=== PATIENT | male | born 1935 | race Caucasian/White ===

== ENCOUNTER → 2016-12-20 | Day surgery (SDC) | payer MEDICARE, BC ==
[~2016-12-20] MED LIST: Brimonidine 0.2% Ophth Soln 5 ML Bottle EYELF SCH; Phenylephrine 2.5% Ophth Soln 2 ML Bot EYELF SCH
[2016-12-20 10:28] VITALS: BP 150/71
== END ==
LOC: JD.SDS 09:49
PROVIDERS: ATTEND Ophthalmology
DX: H26.492 Other secondary cataract, left eye (principal); H35.372 Puckering of macula, left eye; H16.223 Keratoconjunctivitis sicca, not specified as Sjogren's, bilateral; H16.103 Unspecified superficial keratitis, bilateral; Z98.42 Cataract extraction status, left eye; Z98.41 Cataract extraction status, right eye; Z96.1 Presence of intraocular lens; Z79.82 Long term (current) use of aspirin; Z79.899 Other long term (current) drug therapy; Z98.890 Other specified postprocedural states
CPT/HCPCS: 66821; A9270

== ENCOUNTER 2021-02-11 07:31 | Emergency (ER) | payer MEDICARE, OTHER ==
--- NOTE | 2021-02-11 08:21 | EDM.PDOC ---
ED HPI GENERAL MEDICAL PROBLEM - General Chief Complaint: Gastrointestinal Problem Stated Complaint: CONSTIPATION X 1 WEEK Time Seen by Provider: 02/11/21 08:08 Source of Information: Reports: Patient History Limitations: Reports: No Limitations - History of Present Illness INITIAL COMMENTS - FREE TEXT/NARRATIVE: 85-year-old male presents to the ED complaining primarily of constipation with no good bowel movement for a week. He did give himself an enema this morning and did have some relief of rectal pressure discomfort. He takes MiraLAX on an intermittent basis which is not helpful. Complains of bloats and increased pain left upper quadrant left lower quadrant of the abdomen. No blood noted in the stool. No blood with wiping. Stools are hard and painful to pass and take a lot of bearing down to get things to go. He has known to have BPH as well but states his urinary stream is fair with nocturia usually x1 or none. He is also complaining of diffuse low back pain and hip pain on the left side. Onset: Other (Chronic issues with constipation and worsening low back pain left hip pain) Duration: Chronic, Getting Worse Location: Reports: Abdomen (Chronic constipation with primarily rectal pressure and occasional lower abdominal cramping pain.), Back (Increased left low back pain rating into the left hip and groin. Mildly down the left posterior left leg.) Quality: Reports: Ache (Constant aching pain left low back and hip area) Severity: Moderate (it is made worse by walking) Improves with: Reports: Rest Worsens with: Reports: Movement (Walking makes it worse.) Context: Denies: Activity, Exercise, Lifting, Sick Contact, Trauma, Other Associated Symptoms: Reports: Cough (Rare cough), Malaise. Denies: No Other Symptoms, Confusion ( usually no sputum.), Chest Pain, cough w sputum, Diaphoresis, Fever/Chills, Headaches, Loss of Appetite, Nausea/Vomiting, Rash, Seizure, Shortness of Breath, Syncope Treatments TUB WASHER: Reports: Other (see below) (Uses tramadol as needed for pain) Left Abdominal Pain Score (Numeric/FACES): 7 - Related Data Allergies Allergy/AdvReac Type Severity Reaction Status Date / Time No Known Allergies Allergy Verified 02/11/21 08:03 Home Meds: Home Meds Ascorbate Calcium [Vitamin C] 500 mg PO DAILY 06/06/18 [History] Calcium Carbonate [Calcium] 500 mg PO DAILY 06/06/18 [History] Docusate Sodium [Stool Softener] 100 mg PO DAILY 06/06/18 [History] Vitamin A Palmitate [Vitamin A] 1 tab PO DAILY 06/06/18 [History] traMADol [Ultram] 50 mg PO Q4HR PRN 06/06/18 [History] Meloxicam 15 mg PO DAILY #12 tablet 02/11/21 [Rx] Past Medical History HEENT History: Reports: Impaired Vision Gastrointestinal History: Reports: Chronic Constipation Genitourinary History: Reports: BPH, Other (See Below) (Nocturia usually x1-2.) Musculoskeletal History: Reports: Osteoarthritis (Particularly in his knees and lower back and neck.) - Infectious Disease History Infectious Disease History: Reports: Novel Coronavirus - Past Surgical History HEENT Surgical History: Reports: Cataract Surgery Cardiovascular Surgical History: Reports: Coronary Artery Stent Neurological Surgical History: Reports: C-Spine Musculoskeletal Surgical History: Reports: Arthroscopic Knee, Knee Replacement Social & Family History - Tobacco Use Tobacco Use Status *Q: Never Tobacco User - Caffeine Use Caffeine Use: Reports: Coffee - Recreational Drug Use Recreational Drug Use: No - Living Situation & Occupation Living situation: Reports: , with Spouse Occupation: Retired ED ROS GENERAL - Review of Systems Review Of Systems: See Below Constitutional: Reports: Malaise, Fatigue. Denies: Fever, Chills, Decreased Appetite, Weight Loss HEENT: Reports: Glasses, Hearing Loss (Mild hearing loss without use of hearing aids) Respiratory: Reports: Shortness of Breath (Usually on exertion), Cough Cardiovascular: Reports: Blood Pressure Problem, Dyspnea on Exertion. Denies: Chest Pain ( nonproductive cough at times), Claudication (Hypertension), Edema, Lightheadedness, Orthopnea Endocrine: Reports: Fatigue (On occasion.) GI/Abdominal: Reports: Constipation, Decreased Appetite. Denies: Nausea, Stool Incontinence, Vomiting : Reports: Frequency, Other (Nocturia x1 only usually) Musculoskeletal: Reports: Neck Pain, Back Pain, Joint Pain (Pain radiating from his back and into his left hip. Mild pain in his knees.) Skin: Reports: No Symptoms Neurological: Reports: No Symptoms Psychiatric: Reports: No Symptoms Hematologic/Lymphatic: Reports: No Symptoms Immunologic: Reports: No Symptoms ED EXAM, GI/ABD - Physical Exam Exam: See Below Exam Limited By: No Limitations General Appearance: Alert, WD/WN, No Apparent Distress, Other (Temperature of 36.0. Heart rate 54 and sinus. Respiratory is 18 with O2 sats of 97% room air. Blood pressure 159/66) Eyes: Bilateral: Normal Appearance (No blepharal pallor or scleral icterus.) Throat/Mouth: Normal Inspection, Normal Lips, Normal Oropharynx. No: Normal Teeth Head: Atraumatic, Normocephalic Neck: Normal Inspection, Limited Range of Motion (Crepitus on lateral rotation.). No: Lymphadenopathy (L), Lymphadenopathy (R) Respiratory/Chest: No Respiratory Distress, Lungs Clear, Normal Breath Sounds, Decreased Breath Sounds (Mildly decreased air entry to both posterior lung [place] by about 20%.). No: Rales, Rhonchi, Wheezing Cardiovascular: Regular Rate, Rhythm, No Edema, No Gallop, No Murmur, No Rub GI/Abdominal Exam: Normal Bowel Sounds, Soft, Non-Tender, No Organomegaly, No Abnormal Bruit, No Mass, Pelvis Stable, Other (Abdominal aorta is not palpable.) Back Exam: Normal Inspection, Decreased Range of Motion, Other (Patient does have pain on palpation of the lumbar spine with maximal point of tenderness over the L3-L4 and L4-L5 facet joints bilaterally. There is mild paraspinal muscle spasm on the right side. He has marked pain on palpation of both sacroiliac joints much worse on the left side as compared to ) Extremities: Other (Patient has evidence of osteoarthritic changes in both knees particular medial aspect of the left knee. He has limited external and internal rotation of both hips I would say equal.) Neurological: Alert, Oriented, CN II-XII Intact, Normal Cognition. No: Normal Gait Psychiatric: Normal Affect (Limping type gait left side), Normal Mood Skin Exam: Warm, Dry, Intact, Normal Color, No Rash Course - Vital Signs Last Recorded V/S: Last Vital Signs Temp 36.0 C L 02/11/21 08:03 Pulse 54 L 02/11/21 08:03 Resp 18 02/11/21 08:03 BP 159/66 H 02/11/21 08:03 Pulse Ox 97 02/11/21 08:03 - Orders/Labs/Meds Orders: Active Orders 24 hr Category Date Time Status Abdomen 1V Flat [CR] Stat Exams 02/11/21 07:52 Taken Pelvis 1V or 2V [CR] Stat Exams 02/11/21 08:17 Taken Meds: Medications Discontinued Medications Generic Name Dose Route Start Last Admin Trade Name Femi PRN Reason Stop Dose Admin Magnesium Citrate 240 ml 02/11/21 08:44 02/11/21 09:23 Magnesium Citrate Solution 296 Ml Bottle PO 02/11/21 08:45 240 ml ONETIME ONE Administration - Radiology Interpretation Free Text/Narrative:: 85-year-old male presents to the ED with history of chronic constipation issues. Stools are very hard and painful to pass without bleeding per rectum. He gave himself an enema this morning to help relieve rectal pressure discomfort with some results. Still feels abdominally bloated with decreased appetite. Second problem is diffuse low back pain left hip pain rating into the left groin. Pain radiates down the posterior lateral aspect of the left leg below not below the knee. Benign abdominal examination other than slightly increased bowel sounds. No masses identified. No hernias. Examination of his low back shows diffuse musculoskeletal tenderness worse on the right side as compared to the left with paraspinal muscle spasm. He has marked tenderness however throughout the SI joints bilaterally worse on the left as compared to the right. I believe this is the source of his left low back pain. Clinically has osteoarthritic changes in his lumbar spine as well. He has decreased ability to forward flex and increased pain with extension of the back. Evidence of osteoarthritic changes medial compartment of the left knee clinically. Plan x-ray of the pelvis will be done to have a look at his hips and SI joints. X-ray 1 view of the abdomen to be done to visualize the extent of his constipation. - Re-Assessments/Exams Free Text/Narrative Re-Assessment/Exam: 02/11/21 08:44 x-ray of the abdomen does reveal increased stool throughout large portions of the bowel particularly right hemicolon at the hepatic flexure across the transverse colon involving the splenic flexure and descending colon. Patient had given himself an enema prior to coming to the ED this morning and the rectal vault is pretty well empty. I am going to give him Citroma for magnesium citrate 8 ounces mixed with 6 ounces of juice of choice by mouth once. This will provide bowel cleanse. Advised he needs to stay on MiraLAX 17 g or 1 scoop every single day to prevent constipation from occurring. X-rays of the pelvis revealed degenerative arthritic changes in the inferior portions of both hips worse on the left as compared to the right. However this is not bad enough to warrant a total hip replacement. Most of his pain appears to be coming from the sacroiliac joints which are partially fused and clinically has significant bilateral sacroiliitis. I am going to place him on meloxicam 15 mg once daily for the next 12 days to see if it provides relief. After that I will have him follow-up with his primary care physician and could opt for meloxicam 7.5 mg once a day chronically if kidney function is unaffected. Departure - Departure Time of Disposition: 08:46 Disposition: Home, Self-Care 01 Condition: Fair Clinical Impression: Constipation by delayed colonic transit, Bilateral sacroiliitis Abdominal pain Qualifiers: Abdominal location: left upper quadrant Qualified Code(s): R10.12 - Left upper quadrant pain - Discharge Information *PRESCRIPTION DRUG MONITORING PROGRAM REVIEWED*: Not Applicable *COPY OF PRESCRIPTION DRUG MONITORING REPORT IN PATIENT JERRY: Not Applicable Prescriptions: Meloxicam 15 mg PO DAILY #12 tablet Instructions: Chronic Constipation Referrals: Dima Hernandez MD [Primary Care Provider] - Forms: ED Department Discharge Additional Instructions: Evaluation in the emergency room this morning in regards to pain coming from the left lower back and flank area radiating around to the left groin. X-rays of the abdomen do confirm constipation with increased stool in the right hemicolon up underneath your liver and in the left upper quadrant of the abdomen. The re ctal vault was empty. Suggest using Citroma or magnesium citrate 8 ounces mixed with 6 ounces of juice of choice this morning to provide bowel cleanse. This will usually start to work in 1 to 2 hours. You will need to take MiraLAX powder 17 g or 1 scoop every single day to prevent constipation from occurring. X-rays of the pelvis reveal mild degenerative arthritis in both hips but not bad enough to warrant a hip surgery. Most of the inflammation is coming from the sacroiliac joints where your back joins onto the sacrum. Both joints show significant inflammation or osteoarthritic change and are starting to fuse together. Suggest a trial of meloxicam 15 mg once daily for the next 12 days taken first thing in the morning with breakfast to see if this will alleviate a good portion of your pain as it reduces inflammation. I would suggest follow-up with your primary care physician in 12 days time to see how you are doing with this medication. If kidney function is good you could continue this medication at a lower dose at 7.5 mg once daily. Sepsis Event Note (ED) - Evaluation Sepsis Screening Result: No Definite Risk - Focused Exam Vital Signs: Vital Signs Temp Pulse Resp BP Pulse Ox 02/11/21 08:03 36.0 C L 54 L 18 159/66 H 97 - My Orders Last 24 Hours: My Active Orders 02/11/21 07:52 Abdomen 1V Flat [CR] Stat 02/11/21 08:17 Pelvis 1V or 2V [CR] Stat - Assessment/Plan Last 24 Hours: My Active Orders 02/11/21 07:52 Abdomen 1V Flat [CR] Stat 02/11/21 08:17 Pelvis 1V or 2V [CR] Stat
[2021-02-11] MEDS ORDERED: Magnesium Citrate Solution 296 ML Bottle PO ONE (08:44)
--- NOTE | 2021-02-12 08:05 | CR ---
Abdomen: Supine view of the abdomen was obtained. Comparison: No prior abdominal x-ray, prior CT abdomen and pelvis study of 07/15/11. Minimal increased stool is noted within the colon. Calcifications are noted within the pelvis which are compatible with phleboliths. Minimal degenerative change is scattered within the spine. No discrete soft tissue abnormality is appreciated. Impression: 1. Nonacute findings as noted above. Diagnostic code #2
--- NOTE | 2021-02-12 08:06 | CR ---
Pelvis: AP view of the pelvis was obtained. Comparison: No prior pelvis radiograph is available. Joint spaces are maintained. Sacroiliac joints are within normal limits. Bony structures are osteopenic. No acute fracture or other bony abnormality is seen. Impression: 1. Osteopenia. 2. Nothing acute is seen on AP pelvis study. Diagnostic code #2
== END 2021-02-11 09:08 | disposition home or self-care (01) ==
LOC: JD.ED 07:31
DX: K59.01 Slow transit constipation (principal); M46.1 Sacroiliitis, not elsewhere classified; N40.0 Benign prostatic hyperplasia without lower urinary tract symptoms; Z86.16 Personal history of COVID-19
CPT/HCPCS: 72170; 74018; 99283; A9270

== ENCOUNTER 2022-11-25 10:07 | Emergency (ER) | payer MEDICARE, OTHER ==
[2022-11-25] MEDS ORDERED: Polyethylene Glycol 3350 Powder 17 GM Packet PO ONE (12:12)
== END 2022-11-25 12:49 | disposition home or self-care (01) ==
LOC: JD.ED 10:07
DX: K59.09 Other constipation (principal); Z86.16 Personal history of COVID-19
CPT/HCPCS: 74019; 99283; A9270

== ENCOUNTER 2024-12-15 10:08 | Emergency (ER) | payer MEDICARE, OTHER ==
[2024-12-15] MEDS ORDERED: Sodium Chloride 0.9% 10 ML Syringe FLUSH PRN (10:43)
[2024-12-15] MEDS: Meclizine 25 MG Tab PO ONE (11:06)
[2024-12-15 11:08] LABS: BASOPHILS PERCENT AUTO 0.3 % (0.0-1.0); EOSINOPHILS PERCENT AUTO 0.1 % (0.0-6.0); HEMATOCRIT 42.9 % (42.0-52.0); HEMOGLOBIN 14.2 gm/dl (14.0-18.0); IMMATURE GRAN ABSOLUTE AUTO 0.05 K/mm3 (0.00-0.05); IMMATURE GRAN PERCENT AUTO 0.5 % (0.0-0.4); LYMPHOCYTES ABSOLUTE AUTO 1.4 K/mm3 (1.0-4.8); LYMPHOCYTES PERCENT AUTO 13.6 % (24.0-44.0); MEAN CORPUSCULAR HEMOGLOBIN 30.7 pg (28.0-32.0); MEAN CORPUSCULAR HGB CONC 33.1 g/dl (32.0-36.0); MEAN CORPUSCULAR VOLUME 92.9 fl (83.0-99.0); MEAN PLATELET VOLUME 10.2 fl (9.4-12.4); MONOCYTES ABSOLUTE AUTO 0.3 K/mm3 (0.0-0.8); NEUTROPHILS ABSOLUTE AUTO 8.3 K/mm3 (1.8-7.7); NEUTROPHILS PERCENT AUTO 82.5 % (41.0-71.0); PLATELET COUNT,PLT 221 K/mm3 (150-400); RED BLOOD CELL COUNT 4.62 M/mm3 (4.52-5.90); WHITE BLOOD CELL COUNT,WBC 10.04 K/mm3 (3.9-11.3)
[2024-12-15 11:26] LABS: INR 1.06; PROTHROMBIN TIME 11.2 SECONDS (9.7-12.0)
[2024-12-15 11:28] LABS: PTT,PARTIAL THROMBOPLSTIN TIME 27.6 SECONDS (21.7-31.4)
[2024-12-15 11:31] LABS: ALBUMIN 3.9 g/dl (3.4-5.0); ANION GAP 11.8 (5-15); BILIRUBIN TOTAL 0.5 mg/dL (0.2-1.0); BUN/CREATININE RATIO 16.2 (14-18); CREATININE 1.3 mg/dL (0.7-1.3); EST CRCL DRUG DOSING (CG) 43.54 mL/min; MAGNESIUM 2.1 mg/dL (1.8-2.4); POTASSIUM,K 3.8 mEq/L (3.5-5.1); PROTEIN TOTAL,TP 7.9 g/dl (6.4-8.2)
[2024-12-15 11:37] LABS: CALCIUM 9.1 mg/dL (8.5-10.1)
[2024-12-15] MEDS: Iopamidol 755 Mg/ML 100 ML Bottle IVPUSH ONE (11:42)
[2024-12-15] MEDS: Sodium Chloride 0.9% 100 ML IV SCH (11:45)
[2024-12-15] MEDS: Lisinopril 10 MG Tab PO ONE (12:54)
== END 2024-12-15 13:38 | disposition home or self-care (01) ==
LOC: JD.ED 10:08
DX: H91.91 Unspecified hearing loss, right ear (principal); I10 Essential (primary) hypertension; R42 Dizziness and giddiness; E78.00 Pure hypercholesterolemia, unspecified; Z79.899 Other long term (current) drug therapy; Z86.16 Personal history of COVID-19
CPT/HCPCS: 36415; 70450; 70496; 70498; 80053; 83735; 84484; 85025; 85610; 85730; 93005; 99284; A9270; Q9967; 93010